=== PATIENT | male | born 1950 | race Caucasian/White ===

== ENCOUNTER 2017-08-20 20:42 | Emergency (ER) | payer OTHER ==
--- NOTE | 2017-08-20 21:48 | EDM.PDOC ---
ED HPI GENERAL MEDICAL PROBLEM - General Chief Complaint: Lower Extremity Injury/Pain Stated Complaint: RT FOOT ISSUES Time Seen by Provider: 08/20/17 21:30 Source of Information: Reports: Patient, Family History Limitations: Reports: No Limitations - History of Present Illness INITIAL COMMENTS - FREE TEXT/NARRATIVE: 66-year-old male whose been struggling with some chronic sores on his right foot after experiencing significant frostbite a few months ago. He was on an antibiotic until a week ago, has some studies coming up on his foot as well as a podiatry recheck but over the past 24-48 hours he's had increased redness and swelling. No fevers or chills. Also increased pain. Onset: Gradual (Over the past 2 days) - Related Data Allergies Allergy/AdvReac Type Severity Reaction Status Date / Time No Known Allergies Allergy Verified 08/20/17 21:17 Home Meds: Home Meds Dabigatran Etexilate Mesylate [Pradaxa] 1 tab PO BID 08/20/17 [History] Doxazosin Mesylate [Cardura XL] 1 tab PO BEDTIME 08/20/17 [History] Lisinopril [Prinivil] 0.5 tab PO DAILY 08/20/17 [History] Metoprolol Tartrate 1 tab PO BID 08/20/17 [History] atorvaSTATin Calcium [Atorvastatin Calcium] 1 tab PO DAILY 08/20/17 [History] Past Medical History - Past Health History Medical/Surgical History: Denies Medical/Surgical History Neurological History: Reports: CVA Dermatologic History: Reports: Other (See Below) Other Dermatologic History: 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 - Past Surgical History Cardiovascular Surgical History: Reports: Carotid Endarterectomy, Carotid Stents , Vascular Surgery Social & Family History - Tobacco Use Smoking Status *Q: Never Smoker Review of Systems - Review of Systems Review Of Systems: See Below Constitutional: Denies: Fever Respiratory: Denies: Shortness of Breath GI/Abdominal: Denies: Abdominal Pain, Nausea, Vomiting Skin: Reports: Erythema Neurological: Denies: Headache ED EXAM, GENERAL - Physical Exam Exam: See Below Exam Limited By: No Limitations General Appearance: Alert, No Apparent Distress Respiratory/Chest: No Respiratory Distress Extremities: Other (Exam is otherwise limited to the right foot. He has several healing sores on several toes of the right foot, he has developed erythema, warmth and edema through most of the top of the foot with some redness extending to the heel on the medial side) Course - Vital Signs Last Recorded V/S: Last Vital Signs Temp 97.1 F 08/20/17 21:29 Pulse 113 H 08/20/17 21:29 Resp 16 08/20/17 21:29 BP 153/95 H 08/20/17 21:29 Pulse Ox 93 L 08/20/17 21:29 - Re-Assessments/Exams Free Text/Narrative Re-Assessment/Exam: 08/20/17 21:46 This patient apparently is developing cellulitis of his foot from his chronic wounds. He'll be placed on Augmentin 875 mg twice a day which she should take until his recheck, I also gave him 10 Vicodin to use for extra pain control. He should return in the next 24-48 hours if worsening despite treatment. Departure - Departure Time of Disposition: 22:02 Disposition: Home, Self-Care 01 Condition: Good Clinical Impression: Cellulitis of foot - Discharge Information Instructions: Cellulitis, Adult, [id number] Referrals: PCP,None [Primary Care Provider] - Forms: ED Department Discharge Care Plan Goals: Take antibiotic twice daily with food. Return for recheck in the next 24-48 hours if worsening despite treatment. Use stronger pain medication as prescribed if needed. Otherwise recheck as scheduled.
== END 2017-08-20 21:55 | disposition home or self-care (01) ==
LOC: JP.ED 20:42
DX: L03.115 Cellulitis of right lower limb (principal); Z79.899 Other long term (current) drug therapy
CPT/HCPCS: 99283

== ENCOUNTER 2021-04-30 10:19 | Day surgery (SDC) | payer MEDICARE, OTHER ==
[2021-04-30] MEDS ORDERED: Sodium Chloride 0.9% 1,000 ML IV SCH (11:00)
[2021-04-30] MEDS ORDERED: fentaNYL 100 MCG/2 ML SDV ONE (12:08)
[2021-04-30] MEDS ORDERED: Propofol 200 MG/20 ML SDV ONE (12:08)
--- NOTE | 2021-04-30 14:58 | OR ---
DATE OF PROCEDURE: 04/30/2021 SURGEON: Dakota Olguin MD PROCEDURE: Colonoscopy. FINDINGS: Diverticulosis, mild. COMPLICATIONS: None. ENGRAVER LETTER: None. PREOPERATIVE DIAGNOSIS: Screening colonoscopy. POSTOPERATIVE DIAGNOSIS: Screening colonoscopy. RISKS: Risks, benefits, alternatives, and limitations including, but not limited to infection, bleeding, perforation, false positives and false negatives were explained to the patient and he wished to proceed. PROCEDURE IN DETAIL: The patient was placed in left lateral decubitus position. Digital rectal exam was performed without abnormality. Scope was introduced and advanced atraumatically to the ileocecal valve. A photo was taken of this. Scope was brought back through the ascending, transverse, descending colon, and retroflexed. No evidence of old or new blood. No masses. No polyps. The diverticulosis would be described as mild and limited to sigmoid colon without evidence of diverticulitis or bleeding. No abnormalities on retroflexion. Greater than 8 minutes was spent removing the scope. The prep was acceptable, approximately 90% of the luminal surface could be seen. The patient tolerated the procedure well. Dakota Olguin MD /[id number]
== END 2021-04-30 13:15 | disposition home or self-care (01) ==
LOC: JP.SDS 10:19
PROVIDERS: ATTEND Surgery
DX: Z12.11 Encounter for screening for malignant neoplasm of colon (principal); K57.30 Diverticulosis of large intestine without perforation or abscess without bleeding; E11.9 Type 2 diabetes mellitus without complications; I10 Essential (primary) hypertension; Z88.8 Allergy status to other drugs, medicaments and biological substances
CPT/HCPCS: 45378; J2704; J3010; J7030

== ENCOUNTER 2023-04-10 11:03 | Emergency (ER) | payer MEDICARE, OTHER | END 2023-04-10 12:13 | disposition home or self-care (01) | LOC: JP.ED 11:03 | DX: L03.116 Cellulitis of left lower limb (principal); I10 Essential (primary) hypertension; Z88.5 Allergy status to narcotic agent; Z88.4 Allergy status to anesthetic agent; Z79.02 Long term (current) use of antithrombotics/antiplatelets; Z86.73 Personal history of transient ischemic attack (TIA), and cerebral infarction without residual deficits | CPT/HCPCS: 99283 ==

== ENCOUNTER 2023-05-21 10:47 | Emergency (ER) | payer OTHER, MEDICARE | END 2023-05-21 12:13 | disposition home or self-care (01) | LOC: JP.ED 10:47 | DX: U07.1 COVID-19 (principal); I10 Essential (primary) hypertension; Z86.16 Personal history of COVID-19; Z87.891 Personal history of nicotine dependence; Z88.5 Allergy status to narcotic agent; Z88.8 Allergy status to other drugs, medicaments and biological substances; Z79.899 Other long term (current) drug therapy | CPT/HCPCS: 99283 ==